=== PATIENT | female | born 1980 | race American Indian/Alaskan Native ===

== ENCOUNTER 2016-07-07 01:17 | Emergency (ER) | payer OTHER ==
[2016-07-07 01:42] VITALS: BP 134/84
[2016-07-07] MEDS ORDERED: NACL 0.9% 1000 ML 1,000 ML IV ONE (01:44)
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
== END 2016-07-07 02:44 | disposition home or self-care (01) ==
LOC: ED 01:17
DX: T15.82XA Foreign body in other and multiple parts of external eye, left eye, initial encounter (principal); T15.81XA Foreign body in other and multiple parts of external eye, right eye, initial encounter; X58.XXXA Exposure to other specified factors, initial encounter; Y93.9 Activity, unspecified; Y99.8 Other external cause status; Y92.89 Other specified places as the place of occurrence of the external cause
CPT/HCPCS: 99283; J7030

== ENCOUNTER 2017-04-24 19:03 | Emergency (ER) | payer BC, OTHER ==
[2017-04-24 19:47] VITALS: BP 141/84
[2017-04-24 20:37] LABS: Bacteria,Urine 1+ /HPF (Negative); Bilirubin,Urine NEG (Negative); Blood,Urine MOD (Negative); Color,Urine Yellow (Yellow); Mucus,Urine FEW /HPF; Nitrite,Urine NEG (Negative); Protein,Urine <15 mg/dL mg/dL (Negative); Urobilinogen,Urine < 2.0 mg/dL (<2.0)
[2017-04-24 21:10] LABS: Basophils % (Auto) 0.4 % (0.0-1.8); Eosinophils % (Auto) 0.8 % (0.0-4.3); Hematocrit 40.1 % (30.3-42.9); Hemoglobin 13.3 gm/dl (10.1-14.3); Lymphocytes # (Auto) 1.3 K/mm3 (1.2-5.4); Lymphocytes % (Auto) 35.1 % (13.4-35.0); Mean Corpuscular HGB Conc 33 % (30-34); Mean Corpuscular Hemoglobin 30 pg (28-32); Mean Corpuscular Volume 89 fl (79-97); Monocytes # (Auto) 0.4 K/mm3 (0.0-0.8); Monocytes % (Auto) 10.2 % (0.0-7.3); Platelet Count 179 K/mm3 (140-440); Red Blood Count 4.51 M/mm3 (3.65-5.03); Red Cell Distribution Width 13.7 % (13.2-15.2)
[2017-04-24 21:17] LABS: Alanine Aminotransferase 29 units/L (7-56); BUN/Creatinine Ratio 20; Blood Urea Nitrogen 16 mg/dL (7-17); Calcium 8.8 mg/dL (8.4-10.2); Hemolysis Index 31; Lipase 22 units/L (13-60)
--- NOTE | 2017-04-24 23:21 | Emergency Department Report ---
ED N/V/D HPI - General Chief complaint: Abdominal Pain Stated complaint: DIARRHEA Time Seen by Provider: 04/24/17 23:14 Source: patient Mode of arrival: Ambulatory Limitations: No Limitations - History of Present Illness Initial comments: Patient is a 36-year-old female presents to emergency room with complaints of abdominal cramping and diarrhea 2 weeks. Patient denies fever and chills. She denies nausea or vomiting. Patient states prior to a week and a half ago patient was diagnosed with BV and given Flagyl for 7 days. Patient states passing a lot of gas. Patient denies abdominal pain at this time. Patient states she only has abdominal cramping just prior to having diarrhea. Patient states she is having some discomfort with urination since having so many bowel movements Patient denies recent URI. Patient denies foreign travel or any recent travel. MD complaint: diarrhea -: Gradual Description of Vomiting: watery Description of Diarrhea: water Associated Abdominal Pain: Yes Location: diffuse Severity: mild Quality: cramping Consistency: now resolved Improves with: bowel movement Worsens with: rest Context: recent anitbiotic use Associated Symptoms: denies other symptoms - Related Data Previous Rx's Medication Instructions Recorded Last Taken Type Ciprofloxacin HCl [Cipro] 500 mg PO BID 10 Days #20 tablet 04/24/17 Unknown Rx Allergies Allergy/AdvReac Type Severity Reaction Status Date / Time No Known Allergies Allergy Verified 07/07/16 01:36 ED Review of Systems ROS: Stated complaint: DIARRHEA Other details as noted in HPI Comment: All other systems reviewed and negative Constitutional: denies: chills, fever Eyes: denies: eye pain, eye discharge, vision change ENT: denies: ear pain, throat pain Respiratory: denies: cough, shortness of breath, wheezing Cardiovascular: denies: chest pain, palpitations Endocrine: no symptoms reported Gastrointestinal: as per HPI, diarrhea Genitourinary: dysuria Musculoskeletal: as per HPI Skin: as per HPI Neurological: as per HPI Psychiatric: as per HPI Hematological/Lymphatic: as per HPI ED Past Medical Hx - Past Medical History Previous Medical History?: Yes Hx Hypertension: Yes (Pre) - Surgical History Past Surgical History?: No - Family History Family history: hypertension - Social History Smoking Status: Never Smoker Substance Use Type: None - Medications Home Medications: Home Medications Medication Instructions Recorded Confirmed Last Taken Type Ciprofloxacin HCl [Cipro] 500 mg PO BID 10 Days #20 tablet 04/24/17 Unknown Rx ED Physical Exam - General Limitations: No Limitations General appearance: alert, in no apparent distress - Head Head exam: Present: atraumatic, normocephalic - Eye Eye exam: Present: normal appearance - ENT ENT exam: Present: mucous membranes moist - Neck Neck exam: Present: normal inspection - Respiratory Respiratory exam: Present: normal lung sounds bilaterally. Absent: respiratory distress - Cardiovascular Cardiovascular Exam: Present: regular rate, normal rhythm. Absent: systolic murmur, diastolic murmur, rubs, gallop - GI/Abdominal GI/Abdominal exam: Present: soft, normal bowel sounds - Extremities Exam Extremities exam: Present: normal inspection - Back Exam Back exam: Present: normal inspection - Neurological Exam Neurological exam: Present: alert, oriented X3 - Psychiatric Psychiatric exam: Present: normal affect, normal mood - Skin Skin exam: Present: warm, dry, intact, normal color. Absent: rash ED Course Vital Signs 04/24/17 19:41 Temperature 98.3 F Pulse Rate 67 Respiratory 18 Rate Blood Pressure 141/84 O2 Sat by Pulse 100 Oximetry ED Medical Decision Making - Lab Data Result diagrams: 04/24/17 20:02 04/24/17 20:02 - Medical Decision Making Patient is a 36-year-old female who presents to emergency room with acute diarrhea after Flagyl use. Patient is stable for discharge. Will treat UTI accordingly. All labs discussed with patient. Patient encouraged to find a primary care and follow up with her PCP within 3-5 days. - Differential Diagnosis gastroenteritis, acute diarrhea. recent abx use. Critical care attestation.: If time is entered above; I have spent that time in minutes in the direct care of this critically ill patient, excluding procedure time. ED Disposition Clinical Impression: Acute diarrhea, Acute gastroenteritis, UTI (urinary tract infection), Abdominal cramping Disposition: DC-01 TO HOME OR SELFCARE Is pt being admited?: No Does the pt Need Aspirin: No Condition: Stable Instructions: Abdominal Pain (ED) Additional Instructions: Patient to follow up with primary care in 3-5 days. Patient filed roll inspector in 3-5 days. Patient states medications as directed. Patient to increase water. Patient is take Tylenol or ibuprofen when necessary for pain. Patient to return if ER if condition worsens. Patient is to start a probiotic. Prescriptions: Ciprofloxacin HCl [Cipro] 500 mg PO BID 10 Days #20 tablet Referrals: FABIENNE RAMOS MD [Primary Care Provider] - 3-5 Days Time of Disposition: 23:28
== END 2017-04-24 23:57 | disposition home or self-care (01) ==
LOC: ED 19:03
DX: K52.89 Other specified noninfective gastroenteritis and colitis (principal); N39.0 Urinary tract infection, site not specified; R19.7 Diarrhea, unspecified; R10.84 Generalized abdominal pain; I10 Essential (primary) hypertension
CPT/HCPCS: 36415; 80053; 81001; 83690; 84703; 85025; 99283

== ENCOUNTER 2017-11-08 17:54 | Emergency (ER) | payer BC ==
[2017-11-08 18:05] VITALS: BP 157/106
[2017-11-08] MEDS ORDERED: TYLENOL ONE (18:05)
[2017-11-08] MEDS ORDERED: BOOSTRIX IM ONE (19:22)
[2017-11-08] MEDS ORDERED: MOTRIN PO ONE (19:22)
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
== END 2017-11-08 19:50 | disposition home or self-care (01) ==
LOC: ED 17:54
DX: O9A.211 Injury, poisoning and certain other consequences of external causes complicating pregnancy, first trimester (principal); S61.012A Laceration without foreign body of left thumb without damage to nail, initial encounter; Z3A.01 Less than 8 weeks gestation of pregnancy; W26.8XXA Contact with other sharp object(s), not elsewhere classified, initial encounter; Y93.89 Activity, other specified; Y99.8 Other external cause status; Y92.89 Other specified places as the place of occurrence of the external cause
CPT/HCPCS: 90471; 90715

== ENCOUNTER 2017-11-11 07:58 | Emergency (ER) | payer BC ==
[2017-11-11 08:25] VITALS: BP 122/83
--- NOTE | 2017-11-11 09:07 | Emergency Department Report ---
ED Laceration HPI - HPI Chief Complaint: Wound/Laceration Stated Complaint: LACERATION REOPENED UP Time Seen by Provider: 11/11/17 09:04 Occurred When: Before Yesterday (3 days ago) Severity: moderate (5/10) Tetanus Status: Up to Date Laceration Symptoms: Yes Pain (left thumb), No Foreign Body Sensation, No Numbness, No Weakness Other History: This is a 37-year-old female who presented to the emergency room report that she injured her finger 3 days ago and she was in emergency room and they put glue on laceration site which came apart. She says she is on Augmentin antibiotic but it still painful and she is here to see if she has a broken bone. Pain is 5 out of 10 achy worsened movement. Denies any fever or chills . ED Review of Systems ROS: Stated complaint: LACERATION REOPENED UP Other details as noted in HPI Constitutional: denies: chills, fever Respiratory: denies: cough, shortness of breath, SOB with exertion, SOB at rest , stridor, wheezing Cardiovascular: denies: chest pain, palpitations, edema, syncope Gastrointestinal: denies: abdominal pain, nausea, diarrhea Musculoskeletal: arthralgia. denies: back pain, joint swelling Skin: other (left thumb wound). denies: rash, lesions Neurological: denies: headache, numbness, paresthesias ED Past Medical Hx - Past Medical History Previous Medical History?: Yes Hx Hypertension: Yes (Pre) - Surgical History Past Surgical History?: No - Family History Family history: hypertension - Social History Smoking Status: Never Smoker Substance Use Type: None - Medications Home Medications: Home Medications Medication Instructions Recorded Confirmed Last Taken Type Ciprofloxacin HCl [Cipro] 500 mg PO BID 10 Days #20 tablet 04/24/17 Unknown Rx Acetaminophen 500 mg PO Q6H PRN #30 tablet 11/08/17 Unknown Rx Amoxicillin/K Clav Tab [Augmentin 1 tab PO Q12HR #20 tab 11/08/17 Unknown Rx 875 mg] Laceration Physical Exam - Exam General: Vital signs noted. No distress. Alert and acting appropriately. This is a 37-year-old female well-nourished well-developed in no acute distress Wound Length (cm): 2 (open laceration with minimal drainage) Laceration Location: Upper Extremity (left open wound thumb) Full Body Front + Back: 1 - Patient with 2 cm open laceration with scant drainage, tender to palpate. Wound dehisced Laceration Exam: Yes Normal Distal CMS (No cce. + 2 pulses in all extremities, no neurovascular compromise), No Foreign Body, No Exposed Tendon, Vessel, or Nerve, No Tendon Injury ED Course Vital Signs 11/11/17 08:21 Temperature 98.8 F Pulse Rate 70 Respiratory 18 Rate Blood Pressure 122/83 O2 Sat by Pulse 100 Oximetry - Reevaluation(s) Reevaluation #1: 11/11/17 10:20 Left thumb open wound cleansed with normal saline and Neosporin ointment placed followed by a sterile dry nonadhesive dressing. ED Medical Decision Making - Radiology Data Radiology results: image reviewed - Medical Decision Making This is a 37-year-old female here report that she was here2 days ago for wound to her left thumb. She reports that it was glued and the glued came apart. Patient is on Augmentin She was seen and evaluated by myself. She has normal examination except per left thumb with wound dehisced and scant amount of discharge and tenderness to palpate. She has no restriction in movement of her left thumb. I discussed the patient that she should continue taking her Augmentin as previously prescribed. Wound cleansed with normal saline and Neosporin were then placed the site followed by sterile gauze dressing. Patient discharged home in stable condition. Her vital signs are stable she is afebrile and she is to continue her Augmentin as previously prescribed on 11/09/2017. I discussed the patient that she needs to follow up with her primary care and 4 days or to return to the emergency room if area becomes red, numbness or tingling or radiation of pain to extremity. She voiced understanding and discharged home in stable condition Critical care attestation.: If time is entered above; I have spent that time in minutes in the direct care of this critically ill patient, excluding procedure time. ED Disposition Clinical Impression: Wound dehiscence Laceration of thumb with infection Qualifiers: Encounter type: subsequent encounter Laterality: left Qualified Code(s): S61.012D - Laceration without foreign body of left thumb without damage to nail , subsequent encounter; L08.9 - Local infection of the skin and subcutaneous tissue, unspecified Disposition: DC-01 TO HOME OR SELFCARE Is pt being admited?: No Does the pt Need Aspirin: No Condition: Stable Instructions: Wound Healing and Your Diet (ED), Acute Wound Care (ED) Additional Instructions: Please see discharge instruction in acute wound care Keep affected area clean and dry Take Tylenol for as previously ordered for pain Take Bactrim DS for infection Return to the emergency room if, he developed fever, chills, increased pain and drainage from site, nausea and vomited, increase in redness and/or weakness. Referrals: PRIMARY CARE, [Primary Care Provider] - 11/16/17 Forms: Work/School Release Form(ED)
[2017-11-11] MEDS ORDERED: TRIPLE ANTIBIOTIC TP ONE (09:08)
--- NOTE | 2017-11-11 10:59 | XRay Report ---
LEFT FINGERS, 3 VIEWS: History: Left injury. The bony architecture is intact. Bony alignment is normal. No soft tissue abnormalities are seen. The joint spaces appear preserved. IMPRESSION: Normal left thumb.
== END 2017-11-11 10:47 | disposition home or self-care (01) ==
LOC: ED 07:58
DX: S16.1XXA Strain of muscle, fascia and tendon at neck level, initial encounter (principal); S20.219A Contusion of unspecified front wall of thorax, initial encounter; M25.512 Pain in left shoulder; M54.6 Pain in thoracic spine; Z88.8 Allergy status to other drugs, medicaments and biological substances; V89.2XXA Person injured in unspecified motor-vehicle accident, traffic, initial encounter; Y93.89 Activity, other specified; Y92.89 Other specified places as the place of occurrence of the external cause; Y99.8 Other external cause status
CPT/HCPCS: 99283; A6250

== ENCOUNTER 2019-01-29 07:47 | Emergency (ER) | payer BC ==
--- NOTE | 2019-01-29 08:24 | Emergency Department Report ---
HPI - General Chief Complaint: High BP Time Seen by Provider: 01/29/19 08:00 - HPI HPI: 38-year-old female, who is an employee at this hospital, presents to the emergency department with high blood pressure and some abdominal cramping. The patient says that the last time this happened to her was when she was . Her last menstrual cycle was November 01. She said she did have some blood work done at her [employer] office at [facility] that did not show she was , but she is still concerned that she might be secondary to her symptoms and missed menstrual cycle. The patient was recently started on a new blood pressure medication 2 weeks ago but she cannot remember the name of it. She denies any tobacco or illicit drug use. ED Past Medical Hx - Past Medical History Previous Medical History?: Yes Hx Hypertension: Yes (Pre) - Surgical History Past Surgical History?: No - Social History Smoking Status: Never Smoker - Medications Home Medications: Home Medications Medication Instructions Recorded Confirmed Last Taken Type Ciprofloxacin HCl [Cipro] 500 mg PO BID 10 Days #20 tablet 04/24/17 Unknown Rx Acetaminophen 500 mg PO Q6H PRN #30 tablet 11/08/17 Unknown Rx Amoxicillin/K Clav Tab [Augmentin 1 tab PO Q12HR #20 tab 11/08/17 Unknown Rx 875 mg] amLODIPine 10 mg PO DAILY #90 tab 03/03/18 Unknown Rx ED Review of Systems ROS: Stated complaint: HBP/STOMACH CRAMPS Other details as noted in HPI Comment: All other systems reviewed and negative Constitutional: denies: chills, fever Respiratory: denies: shortness of breath Cardiovascular: denies: chest pain Gastrointestinal: abdominal pain Genitourinary: denies: dysuria, discharge Musculoskeletal: denies: back pain Physical Exam - Physical Exam Vital Signs: Vital Signs 01/29/19 07:50 Temperature 98.3 F Pulse Rate 81 Respiratory 16 Rate Blood Pressure 175/101 O2 Sat by Pulse 97 Oximetry Physical Exam: GENERAL: The patient is well-developed well-nourished. HENT: Normocephalic. Atraumatic. Patient has moist mucous membranes. EYES: Extraocular motions are intact. NECK: Supple. Trachea is midline. CHEST/LUNGS: Clear to auscultation. There is no respiratory distress noted. HEART/CARDIOVASCULAR: Regular. There is no tachycardia. There is no murmur. ABDOMEN: Abdomen is soft, nontender. Patient has normal bowel sounds. There is no abdominal distention. SKIN: Skin is warm and dry. NEURO: The patient is awake, alert, and oriented. The patient is cooperative. The patient has no focal neurologic deficits. Normal speech. MUSCULOSKELETAL: There is no tenderness or deformity. There is no evidence of acute injury. ED Course Vital Signs 01/29/19 07:50 Temperature 98.3 F Pulse Rate 81 Respiratory 16 Rate Blood Pressure 175/101 O2 Sat by Pulse 97 Oximetry ED Medical Decision Making - Lab Data Result diagrams: 01/29/19 09:14 - Radiology Data Radiology results: report reviewed ULTRASOUND PELVIS INDICATION / CLINICAL INFORMATION: pelvic pain, two missed menstrual cycles. TECHNIQUE: Transabdominal and Transvaginal. Duplex Color Doppler used: Yes. COMPARISON: None available FINDINGS: No intrauterine is identified. UTERUS: Present. - Appearance (if present): No significant abnormality. - Size in cm (if present): 10.0 x 5.1 x 6.3. - Endometrial Complex (if present): No significant abnormality.. Thickness in cm (if measured) = 1.4 - Mass lesions: None. - Additional findings: None. RIGHT ADNEXA: No significant ovarian cyst or mass. Normal color Doppler blood flow. LEFT ADNEXA: No significant ovarian cyst or mass. Normal color Doppler blood flow. URINARY BLADDER: No significant abnormality. FREE FLUID: None. ADDITIONAL FINDINGS: None. IMPRESSION: 1. No intrauterine identified. The uterus and ovaries appear normal for age. - Medical Decision Making This patient came to the emergency department with concern for some labile and occasionally elevated blood pressure, along with some abdominal cramping, that made her concern for being . She has missed her last 2 menstrual cycles and says that the last time she had the hypertension and abdominal cramping was when she was . Negative test. Ultrasound was done that confirms that the patient is not currently . Her blood pressure came down without any antihypertensive medication or intervention. Otherwise her vital signs have been stable throughout her ED course. She's been instructed to follow-up with primary care and return to the ER with any worsening of her symptoms or any acute distress. Critical Care Time: No Critical care attestation.: If time is entered above; I have spent that time in minutes in the direct care of this critically ill patient, excluding procedure time. ED Disposition Clinical Impression: Abnormal menstrual cycle Hypertension Qualifiers: Hypertension type: essential hypertension Qualified Code(s): I10 - Essential (primary) hypertension Disposition: TO HOME OR SELFCARE Is pt being admited?: No Condition: Stable Instructions: Hypertension (ED) Additional Instructions: Please follow-up with your primary care physician and [employer] in the next few days. Return to the emergency Department with any worsening of your symptoms or any acute distress. Try and stay away from foods that are high in salt and caffeinated products. Keep a blood pressure log. Referrals: [facility] [Outside] - 2-3 Days Time of Disposition: 10:39
[2019-01-29 09:45] LABS: BUN/Creatinine Ratio 18; Blood Urea Nitrogen 14 mg/dL (7-17); Calcium 9.2 mg/dL (8.4-10.2); Hemolysis Index 10
[2019-01-29 10:22] VITALS: BP 137/61
--- NOTE | 2019-01-29 10:29 | Ultrasound Report ---
ULTRASOUND PELVIS INDICATION / CLINICAL INFORMATION: pelvic pain, two missed menstrual cycles. TECHNIQUE: Transabdominal and Transvaginal. Duplex Color Doppler used: Yes. COMPARISON: None available FINDINGS: No intrauterine is identified. UTERUS: Present. - Appearance (if present): No significant abnormality. - Size in cm (if present): 10.0 x 5.1 x 6.3. - Endometrial Complex (if present): No significant abnormality.. Thickness in cm (if measured) = 1.4 - Mass lesions: None. - Additional findings: None. RIGHT ADNEXA: No significant ovarian cyst or mass. Normal color Doppler blood flow. LEFT ADNEXA: No significant ovarian cyst or mass. Normal color Doppler blood flow. URINARY BLADDER: No significant abnormality. FREE FLUID: None. ADDITIONAL FINDINGS: None. IMPRESSION: 1. No intrauterine identified. The uterus and ovaries appear normal for age. Signer Name: Shiv Redd MD Signed: 01/29/2019 10:24 AM Workstation Name: [id number]
== END 2019-01-29 11:00 | disposition home or self-care (01) ==
LOC: ED 07:47
DX: N92.6 Irregular menstruation, unspecified (principal); I10 Essential (primary) hypertension; Z79.2 Long term (current) use of antibiotics; Z79.899 Other long term (current) drug therapy
CPT/HCPCS: 36415; 76801; 76817; 80048; 82962; 84702

== ENCOUNTER 2019-10-14 03:24 | Emergency (ER) | payer BC ==
[2019-10-14 03:59] VITALS: BP 149/97
--- NOTE | 2019-10-14 04:42 | XRay Report ---
LEFT FOOT 3 VIEWS 0418 INDICATION: pain and swelling COMPARISON: None available. FINDINGS: Slight hallux valgus is seen. Posterior calcaneal spurring is noted. Bony densities inferio r to the cubocalcaneal joint probably are old. No definite acute fractures or dislocations are seen. Signer Name: Maverick Bond MD Signed: 10/14/2019 4:37 AM Workstation Name: [id number]
--- NOTE | 2019-10-14 04:51 | Emergency Department Report ---
ED Lower Extremity HPI - General Chief Complaint: Extremity Injury, Lower Stated Complaint: WORK INJURY Time Seen by Provider: 10/14/19 04:28 Source: patient Mode of arrival: Ambulatory Limitations: No Limitations - History of Present Illness Initial Comments: 39-year-old -N[place]alese female patient presents to the ED with complaints of left foot pain due to a crush injury today at work. Patient states that a headboard of a patient's bed fell onto her foot. She rates her pain as a 10/10 in severity and states it worsens with touching the foot. She also complains of tingling in her toes and foot. She denies any decreased range of motion of the foot or toes. - Related Data Previous Rx's Medication Instructions Recorded Last Taken Type Ciprofloxacin HCl [Cipro] 500 mg PO BID 10 Days #20 tablet 04/24/17 Unknown Rx Acetaminophen 500 mg PO Q6H PRN #30 tablet 11/08/17 Unknown Rx Amoxicillin/K Clav Tab [Augmentin 1 tab PO Q12HR #20 tab 11/08/17 Unknown Rx 875 mg] amLODIPine 10 mg PO DAILY #90 tab 03/03/18 Unknown Rx Ibuprofen [Motrin 800 MG tab] 800 mg PO Q8HR PRN #21 tablet 10/14/19 Unknown Rx Allergies Allergy/AdvReac Type Severity Reaction Status Date / Time No Known Allergies Allergy Verified 07/07/16 01:36 ED Review of Systems ROS: Stated complaint: WORK INJURY Other details as noted in HPI Musculoskeletal: arthralgia Skin: denies: rash, lesions Neurological: paresthesias ED Past Medical Hx - Past Medical History Previous Medical History?: Yes Hx Hypertension: Yes (Pre) - Surgical History Past Surgical History?: No - Social History Smoking Status: Never Smoker - Medications Home Medications: Home Medications Medication Instructions Recorded Confirmed Last Taken Type Ciprofloxacin HCl [Cipro] 500 mg PO BID 10 Days #20 tablet 04/24/17 Unknown Rx Acetaminophen 500 mg PO Q6H PRN #30 tablet 11/08/17 Unknown Rx Amoxicillin/K Clav Tab [Augmentin 1 tab PO Q12HR #20 tab 11/08/17 Unknown Rx 875 mg] amLODIPine 10 mg PO DAILY #90 tab 03/03/18 Unknown Rx Ibuprofen [Motrin 800 MG tab] 800 mg PO Q8HR PRN #21 tablet 10/14/19 Unknown Rx ED Physical Exam - General Limitations: No Limitations General appearance: alert, in no apparent distress - Head Head exam: Present: atraumatic, normocephalic - Eye Eye exam: Absent: scleral icterus - Respiratory Respiratory exam: Absent: respiratory distress - Cardiovascular Cardiovascular Exam: Present: regular rate - Extremities Exam Extremities exam: Present: other (Minimal ecchymosis noted to the distal top of the left foot with tenderness to palpation. No bony deformity noted. Normal range of motion of the ankle, foot, and toes noted. Sensation of the left foot is intact) - Neurological Exam Neurological exam: Present: alert, oriented X3. Absent: motor sensory deficit - Psychiatric Psychiatric exam: Present: normal affect, normal mood - Skin Skin exam: Present: warm, dry, intact, normal color. Absent: rash ED Course Vital Signs 10/14/19 03:57 Temperature 97.9 F Pulse Rate 69 Respiratory 20 Rate Blood Pressure 149/97 O2 Sat by Pulse 100 Oximetry ED Lower Extremity MDM - Radiology Data Radiology results: report reviewed LEFT FOOT 3 VIEWS 0417 INDICATION: pain and swelling COMPARISON: None available. FINDINGS: Slight hallux valgus is seen. Posterior calcaneal spurring is noted. Bony densities inferior to the cubocalcaneal joint probably are old. No definite acute fractures or dislocations ar e seen. - Medical Decision Making Patient here for crush injury of the left foot during work today. No bony deformities or signs of compartment syndrome noted on exam. X-ray is negative for fracture. Patient is stable for discharge home. Recommend rice method and ibuprofen. Patient to follow-up with Ortho as needed. Strict return precautions were discussed in great detail with patient who verbalizes understanding. Critical care attestation.: If time is entered above; I have spent that time in minutes in the direct care of this critically ill patient, excluding procedure time. ED Disposition Clinical Impression: Contusion of left foot Qualifiers: Encounter type: initial encounter Qualified Code(s): S90.32XA - Contusion of left foot, initial encounter Disposition: TO HOME OR SELFCARE Is pt being admited?: No Condition: Stable Instructions: Contusion in Adults (ED) Additional Instructions: If you develop worsening pain, swelling, redness, or difficulty moving your foot/toes seek immediate emergency treatment. Prescriptions: Ibuprofen [Motrin 800 MG tab] 800 mg PO Q8HR PRN #21 tablet PRN Reason: pain Referrals: RAMESH CANALES MD [Staff Physician] - as needed Forms: Work/School Release Form(ED)
== END 2019-10-14 05:33 | disposition home or self-care (01) ==
LOC: ED 03:24
DX: S90.32XA Contusion of left foot, initial encounter (principal); I10 Essential (primary) hypertension; Z79.1 Long term (current) use of non-steroidal anti-inflammatories (NSAID); Z79.2 Long term (current) use of antibiotics; Z79.899 Other long term (current) drug therapy; X58.XXXA Exposure to other specified factors, initial encounter; Y93.89 Activity, other specified; Y92.89 Other specified places as the place of occurrence of the external cause; Y99.0 Civilian activity done for income or pay

== ENCOUNTER 2021-03-14 11:50 | Emergency (ER) | payer BC, OTHER ==
[2021-03-14] MEDS ORDERED: ONDANSETRON 4 MG/2 ML INJ IV ONE (14:23)
[2021-03-14] MEDS ORDERED: SODIUM CHLORIDE 0.9% 1000 ML 1,000 ML IV ONE (14:23)
[2021-03-14] MEDS ORDERED: MORPHINE 4 MG/1 ML INJ IV ONE (14:23)
--- NOTE | 2021-03-14 14:24 | Emergency Department Report ---
<ZAKIYA PISANO - Last Filed: 03/14/21 16:58> ED Abdominal Pain HPI - General Chief Complaint: Abdominal Pain Stated Complaint: ABDOMINAL PAIN Time Seen by Provider: 03/14/21 14:08 Source: patient Mode of arrival: Ambulatory Limitations: No Limitations - History of Present Illness Initial Comments: 40-year-old female who denies any significant past medical history presents to the ER today with complaints of epigastric pain. She describes as a crampy pain which has been waxing and waning. She states that the pain started last night. She states nonradiating. She states started after she drank a smoothie, and prior to that she did eat spaghetti. She reports nausea but no vomiting. She denies any bowel changes. Her last BM was yesterday. She denies any UTI symptoms or any abnormal vaginal symptoms. She denies any chest pain or shortness of breath. She denies any history of abdominal surgeries in the past. She denies alcohol abuse or any illicit drug use. She denies NSAID abuse. MD Complaint: abdominal pain -: Last night - Related Data Previous Rx's Medication Instructions Recorded Last Taken Type Ciprofloxacin HCl [Cipro] 500 mg PO BID 10 Days #20 tablet 04/24/17 Unknown Rx Acetaminophen 500 mg PO Q6H PRN #30 tablet 11/08/17 Unknown Rx Amoxicillin/K Clav Tab [Augmentin 1 tab PO Q12HR #20 tab 11/08/17 Unknown Rx 875 mg] amLODIPine 10 mg PO DAILY #90 tab 03/03/18 Unknown Rx Ibuprofen [Motrin 800 MG tab] 800 mg PO Q8HR PRN #21 tablet 10/14/19 Unknown Rx Dicyclomine [Bentyl] 20 mg PO QID PRN #12 tablet 03/14/21 Unknown Rx Famotidine 10 mg PO BID #14 tablet 03/14/21 Unknown Rx Allergies Allergy/AdvReac Type Severity Reaction Status Date / Time No Known Allergies Allergy Verified 07/07/16 01:36 ED Review of Systems Comment: All other systems reviewed and negative Constitutional: denies: chills, fever Eyes: denies: eye pain, eye discharge, vision change ENT: denies: ear pain, throat pain Respiratory: denies: cough, shortness of breath, SOB with exertion, SOB at rest, wheezing Cardiovascular: denies: chest pain, palpitations, dyspnea on exertion, edema, syncope, paroxysmal nocturnal dyspnea Endocrine: no symptoms reported Gastrointestinal: denies: abdominal pain, nausea, vomiting, diarrhea, constipation, hematemesis, hematochezia Genitourinary: denies: urgency, dysuria, frequency, hematuria, discharge, abnormal menses, dyspareunia Musculoskeletal: back pain Skin: denies: rash, lesions, change in color, change in hair/nails, pruritus Neurological: denies: headache, weakness, paresthesias, abnormal gait, vertigo Psychiatric: denies: anxiety, depression, auditory hallucinations, visual hallucinations, homicidal thoughts, suicidal thoughts Hematological/Lymphatic: denies: easy bleeding, easy bruising, swollen glands ED Past Medical Hx - Past Medical History Hx Hypertension: Yes (Pre) - Social History Smoking Status: Never Smoker - Medications Home Medications: Home Medications Medication Instructions Recorded Confirmed Last Taken Type Ciprofloxacin HCl [Cipro] 500 mg PO BID 10 Days #20 tablet 04/24/17 Unknown Rx Acetaminophen 500 mg PO Q6H PRN #30 tablet 11/08/17 Unknown Rx Amoxicillin/K Clav Tab [Augmentin 1 tab PO Q12HR #20 tab 11/08/17 Unknown Rx 875 mg] amLODIPine 10 mg PO DAILY #90 tab 03/03/18 Unknown Rx Ibuprofen [Motrin 800 MG tab] 800 mg PO Q8HR PRN #21 tablet 10/14/19 Unknown Rx Dicyclomine [Bentyl] 20 mg PO QID PRN #12 tablet 03/14/21 Unknown Rx Famotidine 10 mg PO BID #14 tablet 03/14/21 Unknown Rx ED Physical Exam - General Limitations: No Limitations General appearance: alert, anxious, in distress (patient appears to be in pain and uncomfortable) - Head Head exam: Present: atraumatic, normocephalic, normal inspection - Eye Eye exam: Present: normal appearance, PERRL, EOMI Pupils: Present: normal accommodation - Neck Neck exam: Present: normal inspection, full ROM. Absent: meningismus - Respiratory Respiratory exam: Present: normal lung sounds bilaterally. Absent: respiratory distress, wheezes, rales, rhonchi - Cardiovascular Cardiovascular Exam: Present: regular rate, normal rhythm, normal heart sounds - GI/Abdominal GI/Abdominal exam: Present: soft, tenderness (Epigastric). Absent: distended, guarding, rebound, rigid - Back Exam Back exam: Present: normal inspection, full ROM. Absent: CVA tenderness (R), CVA tenderness (L) - Neurological Exam Neurological exam: Present: alert, oriented X3, CN II-XII intact, normal gait - Psychiatric Psychiatric exam: Present: normal affect, normal mood - Skin Skin exam: Present: intact ED Medical Decision Making - Lab Data Result diagrams: 03/14/21 14:30 03/14/21 14:30 - Medical Decision Making 1644: Labs reviewed --CBC and CMP reviewed --CBC showed no significant abnormality white count was mildly decreased at 2.7 ( not specific to anything significant at this time will have patient monitor with her PCP, remainder of the labs otherwise stable. Lipase was normal. Ultrasound gallbladder pending. Patient currently resting comfortably. She denies any significant distress. She reports some improvement of her pain after meds. The patient's care has been transferred to and accepted by[TRANG Mendez]. We discussed: The patient's chief complaints; labs and imaging that have been completed and those that are still pending; any treatment provided and the patient's response to treatment; any significant change in condition; the treatment plan prior to the transfer of care. The accepting provider will follow up on all pending labs and imaging and make any necessary changes to the current impression and/or treatment plan. The accepting physician/midlevel is now responsible for the patient's care and final disposition. ED Disposition Clinical Impression: Epigastric pain, Gastritis Disposition: 01 HOME / SELF CARE / HOMELESS Is pt being admited?: No Does the pt Need Aspirin: No Condition: Stable Instructions: Gastritis, Adult, [id number], Abdominal Pain, Adult, Abdominal Pain (ED) Additional Instructions: Please take medications as prescribed. Follow-up with a senior principal architect. Labs are stable ultrasound is negative. Prescriptions: Dicyclomine [Bentyl] 20 mg PO QID PRN #12 tablet PRN Reason: Spasms Famotidine 10 mg PO BID #14 tablet Referrals: PRIMARY CARE, [Primary Care Provider] - 3-5 Days [facility] [Provider Group] - 3-5 Days Time of Disposition: 16:49 <APRIL NUNEZ - Last Filed: 03/14/21 19:11> ED Review of Systems ROS: Stated complaint: ABDOMINAL PAIN Other details as noted in HPI ED Course Vital Signs 03/14/21 13:16 Temperature 98.6 F Pulse Rate 78 Respiratory 16 Rate Blood Pressure 145/94 O2 Sat by Pulse 98 Oximetry ED Medical Decision Making - Lab Data Result diagrams: 03/14/21 14:30 03/14/21 14:30 - Radiology Data Radiology results: report reviewed [facility] [address] [place] [address] Ultrasound Report Signed Patient: STU ECHEVARRIA MR#: [id number] : 1980 Acct:[id number] Age/Sex: 40 / F ADM Date: 03/14/21 Loc: ED Attending Dr: Ordering Physician: ZKAIYA PISANO Date of Service: 03/14/21 Procedure(s): US abdomen limited Accession Number(s): [id number] cc: ZAKIYA KO RUQ ABDOMINAL ULTRASOUND INDICATION: Epigastric pain. COMPARISON: No relevant prior imaging study available. FINDINGS: Pancreas: Visualized portions show no significant abnormality. Abdominal Aorta: No significant abnormality. IVC: No significant abnormality. Liver: The liver measures 15 cm in length. No significant abnormality. Normal hepatopedal blood flow in the main portal vein. Gallbladder: No significant abnormality. Bile ducts: No significant abnormality. Common bile duct measures 6.4 mm. Right kidney: No significant abnormality visualized.. Free fluid: None. Additional Findings: None. IMPRESSION: 1. Normal exam. Signer Name: Shiv Redd MD Signed: 03/14/2021 5:54 PM Workstation Name: [id number] Transcribed By: EUSEBIA Dictated By: Shiv Redd MD Electronically Authenticated By: Shiv Redd MD Signed Date/Time: 03/14/211753 DD/ 52 TD/TT: - Medical Decision Making Patient has been reevaluated by this provider states that she started to have ep igastric spasms again. Patient reports that the morphine did not help much. Patient denies any nausea no vomiting states he just started last night. Ultrasound returns with normal examination. Patient is walking around comfortably. She denies any significant distress. Critical care attestation.: If time is entered above; I have spent that time in minutes in the direct care of this critically ill patient, excluding procedure time.
[2021-03-14 15:02] LABS: Basophils % (Auto) 0.4 % (0.0-1.8); Eosinophils % (Auto) 0.2 % (0.0-4.3); Hematocrit 44.1 % (30.3-42.9); Lymphocytes % (Auto) 40.4 % (13.4-35.0); Mean Corpuscular HGB Conc 32 % (30-34); Mean Corpuscular Volume 92 fl (79-97); Monocytes # (Auto) 0.4 K/mm3 (0.0-0.8); Monocytes % (Auto) 14.6 % (0.0-7.3); Platelet Count 156 K/mm3 (140-440); Red Blood Count 4.82 M/mm3 (3.65-5.03); Red Cell Distribution Width 13.8 % (13.2-15.2)
[2021-03-14 15:12] LABS: BUN/Creatinine Ratio 15; Blood Urea Nitrogen 12 mg/dL (7-17); Calcium 8.7 mg/dL (8.4-10.2); Hemolysis Index 11
[2021-03-14 16:03] LABS: Alanine Aminotransferase 26 units/L (7-56)
[2021-03-14 16:12] LABS: Bilirubin,Direct < 0.2 mg/dL (0-0.2)
--- NOTE | 2021-03-14 17:59 | Ultrasound Report ---
LIMITED RUQ ABDOMINAL ULTRASOUND INDICATION: Epigastric pain. COMPARISON: No relevant prior imaging study available. FINDINGS: Pancreas: Visualized portions show no significant abnormality. Abdominal Aorta: No significant abnormality. IVC: No significant abnormality. Liver: The liver measures 15 cm in length. No significant abnormality. Normal hepatopedal blood flow in the main portal vein. Gallbladder: No significant abnormality. Bile ducts: No significant abnormality. Common bile duct measures 6.4 mm. Right kidney: No significant abnormality visualized.. Free fluid: None. Additional Findings: None. IMPRESSION: 1. Normal exam. Signer Name: Shiv Redd MD Signed: 03/14/2021 5:54 PM Workstation Name: [id number]
[2021-03-14] MEDS ORDERED: DICYCLOMINE 10 MG/5 ML ORAL LIQD PO ONE (18:13)
[2021-03-14 19:35] VITALS: BP 136/87
== END 2021-03-14 19:00 | disposition home or self-care (01) ==
LOC: ED 11:50 → EEVIPCON 11:50 → ED 19:00
DX: R10.13 Epigastric pain (principal); K29.70 Gastritis, unspecified, without bleeding; I10 Essential (primary) hypertension
CPT/HCPCS: 36415; 76705; 80048; 80076; 83690; 84703; 85025; 96361; 96374; 96375; 99284; J2270; J2405; J7030; Q0162